=== PATIENT | female | born 1970 | race Caucasian/White ===

== ENCOUNTER 2016-12-08 12:59 | Emergency (ER) | payer SELFPAY ==
[~2016-12-08] VITALS: Ht 157.5 cm; Wt 84.5 kg
[~2016-12-08 12:59] MED LIST: AMO500 PO; AMOX1TAB10 PO; AZIT250T94 PO; IBUP-1542 PO; LOPE2CAP PO; OMEP20CA16 PO; ONDA-43 PO; RANI150T9 PO; TRAM50TA2 PO; no meds
[2016-12-08 13:10] VITALS: Ht 157.5 cm; Wt 84.5 kg
== END 2016-12-08 18:40 | disposition left against medical advice (07) ==
LOC: E/R 12:59
DX: Z53.21 Procedure and treatment not carried out due to patient leaving prior to being seen by health care provider (principal)